=== PATIENT | female | born 1950 | race Caucasian/White ===

== ENCOUNTER 2022-03-25 03:23 | Inpatient (IN) ==
[2022-03-25] MEDS ORDERED: ONDANSETRON INJ 2 MG/ML 2 ML VIAL IV PRN (06:17)
[2022-03-25] MEDS ORDERED: ACETAMINOPHEN 325 MG TAB PO PRN (06:17)
[2022-03-25] MEDS ORDERED: Patient's ALLERGY Info needs ENTERED STA (06:20)
[2022-03-25] MEDS ORDERED: MoRPHine SULFATE 4 MG/ML 1 ML CARP\\VIAL IV PRN (06:36)
[2022-03-25] MEDS ORDERED: MoRPHine SULFATE 2 MG/ML CARP IV PRN (06:36)
[2022-03-25] MEDS ORDERED: POLYETHYLENE (MIRALAX) 17 GM PACK PO PRN (06:45)
--- NOTE | 2022-03-25 06:48 | History & Physical Report ---
Date of Service March 25, 2022 Assessment & Plan (1) Dislocation of left shoulder joint: Plan: 72yo female with history of ground level fall who initially presented to outside facility with anterior dislocation of the left shoulder and an age indeterminant fracture of the humeral head. Reduction attempted x 3 in ER, unsuccessful. Patient transferred her for Orthopedic evaluation. Presently pain is well controlled. Neurovascularly intact. -Admit to medical -Load imaging onto system -Orthopedics consultation appreciated -Place left arm in sling -Pain control with Morphine as needed -Colace and Miralax PRN (2) Parkinson disease: Plan: Chronic. -Continue Carbidopa-Levodopa -Continue Exelon patch F/E/N - Heplock. Labs ordered and pending. NPO for now Ppx - Low risk for DVT, SCDs Code - Full Dispo - Admit to medical Admission and Anticipated Discharge Date Admission Date: March 25, 2022 History of Present Illness Chief Complaint: left shoulder dislocation Primary Care Provider: NO PCP Kaleigh Farzana is a 72yo female with history of Parkinson's Disease presenting from [facility] with left anterior shoulder dislocation with ag e-indeterminant humeral fracture following a ground level fall. Patient is a poor historian and is unable to provide details of her the events preceding hospital arrival. Per discussion with ER staff at [facility], reduction was attempted x 3 and was unsuccessful. No Orthopedics on staff there. Patient requested transfer to [facility]. CT of the head was performed which was negative At [facility] she received Propofol 200mg and Versed 2mg IV for reduction Allergies Allergy/AdvReac Type Severity Reaction Status Date / Time No Known Drug Allergies Allergy Mild Verified 03/25/22 06:40 Home Medications Medication Instructions Recorded Confirmed Type carbidopa 25 mg-levodopa 100 mg 1 tab PO TID 03/25/22 03/25/22 History tablet rivastigmine 4.6 mg/24 hour 1 patch transdermal DAILY 03/25/22 03/25/22 History transdermal patch (Exelon Patch) Past Med/Surg History Medical History (Updated 03/25/22 @ 06:43 by Radha Chappell DO) Parkinson disease Surgical History (Updated 03/25/22 @ 06:43 by Radha Chappell DO) No significant past surgical history Family History (Updated 03/25/22 @ 06:41 by Radha Chappell DO) Other Family history non-contributory Social History (Updated 03/25/22 @ 06:41 by Radha Chappell DO) Smoking Status: Never smoker Hx Alcohol Use: No Hx Substance Use: No Preferred Language: Maori Communication Ability: Effective Manager Digital Required: No Beliefs That Will Affect Care: None Current Living Situation: Personal Care Facility Other Information That Helps Us Care for You: No Feels Safe at Home: Yes Safety Concerns: Feels Safe At This Time Review of Systems Review of Systems: All systems reviewed & are unremarkable except as noted in HPI & below Physical Exam Physical Exam: General: patient resting comfortably, NAD, non-toxic in appearance, oriented to self and hospital Skin: warm, dry, intact, no rashes or lesions HEENT: NC/AT, PERRL, EOMI, anicteric sclera, conjunctiva without injection, external ear normal to inspection and nontender, nares patent, moist mucus membranes, dentition intact, no oropharyngeal lesions, neck supple, trachea midline, no LAD, no thyromegaly, no JVD Heart: +S1/S2, regular, no m/r/g Lungs: equal air entry bilaterally, no rales/rhonchi/wheezes Abd: +BS, soft, NT/ND, no masses/organomegaly/ascites Ext: warm, 2+ pulses in UE/LE bilaterally, no clubbing/cyanosis or edema Neuro: nonfocal, speech intact, no facial droop, moving all extremities on command with equal strength 5/5 Results & Data Results & Data ([facility]) Vital Signs (Past 12 Hours) Vital Signs Temp Resp BP Pulse Ox O2 Del Method 03/25/22 06:11 36.7 C 18 121/76 97 Room Air PG Care Time/CCT Total # of Minutes Spent Total Time Spent with Patient: Total time spent is greater than 50% in coordination of care (as documented) at patient's floor/unit and/or counseling patient: Coding Level of Care Code 60630 INT INP/OBS CARE 2/55MIN Diagnoses Dislocation of left shoulder joint S43.005A Parkinson disease G20
[2022-03-25 07:00] LABS: Basophils # (auto) 0.03 K/uL (0-0.2); Basophils % (auto) 0.3 %; Hematocrit (blood only) 39.2 % (34.1-44.9); Immature Granulocytes # (auto) 0.04 K/uL (0.00-0.02); Immature Granulocytes % (auto) 0.4 %; Lymphocytes # (auto) 1.11 K/uL (1.2-3.4); Lymphocytes % (auto) 9.9 %; Mean Corpuscular Hemoglobin 30.4 pg (25.0-34.0); Mean Corpuscular Hgb Conc 33.2 g/dL (32.0-36.0); Mean Corpuscular Volume 91.8 fL (80.0-100.0); Mean Platelet Volume 9.9 fL (9.4-12.3); Monocytes # (auto) 0.74 K/uL (0.24-0.82); Monocytes % (auto) 6.6 %; Neutrophils % (auto) 82.8 %; Platelet Count 273 K/uL (130-400); RDW Coefficient of Variation 13.5 % (11.5-14.5); RDW Standard Deviation 45.9 fL (36.4-46.3); Red Blood Count 4.27 M/uL (3.93-5.22); White Blood Count 11.22 K/ul (4.8-10.8)
[2022-03-25 07:25] LABS: Albumin Level 3.8 gm/dl (3.4-5.0); BUN Creatinine Ratio 30.1 (10-20); Bilirubin Direct 0.1 mg/dl (0-0.2); Bilirubin,Total 0.6 mg/dl (0.2-1.0); Calcium 8.7 mg/dl (8.5-10.1); Creatinine Clr Calc Pharmacy 51.9 ml/min; Est GFR (African American) 71.2 ml/min; Est GFR (Non-African American) 61.4 ml/min; Potassium 3.8 mmol/L (3.5-5.1); Total Protein 7.1 gm/dl (6.0-8.3)
[2022-03-25 07:35] LABS: Prothrombin Time 10.9 Seconds (9.0-12.0)
[2022-03-25] MEDS: EXELON~ORDER AWAITING ACTION SCH ×3 (08:51→23:23)
[2022-03-25] MEDS: CARBIDOPA/LEVODOPA 25/100MG TAB PO SCH ×3 (08:51→21:02)
--- NOTE | 2022-03-25 09:51 | XRay Report ---
LEFT SHOULDER 2 VIEWS CLINICAL HISTORY: Left shoulder dislocation. FINDINGS: 2 views of the left shoulder are compared to study performed earlier the same day 03/25/2022 . The skeletal structures are osteopenic. There is a comminuted fracture of the left humeral head wit h displaced fragments and anterior shoulder dislocation. Overlying soft tissue edema is noted. No add itional fracture is seen. Productive degenerative change is noted at the glenohumeral articulation. T he visualized left lung parenchyma appears clear. IMPRESSION: Left humeral head fracture and anterior shoulder dislocation. This is similar to previous . Electronically signed by: Ulises Mcintosh M.D. 03/25/2022 9:50 AM
--- NOTE | 2022-03-25 10:23 | Communication Note ---
Date of Service: March 25, 2022 Full consult dictated. Has fracture dislocation of her shoulder. Surgical treatment would entail reverse hemiarthroplasty if surgical treatment were p erformed. We will allow her to eat today. I will obtain a CAT scan to further evaluate and characterize the fracture and will discuss possibly of surgical treatment with our shoulder colleagues.
--- NOTE | 2022-03-25 10:43 | History and Physical Report ---
CHIEF COMPLAINT: Special attention to left shoulder fracture dislocation. HISTORY OF PRESENT ILLNESS: A 72-year-old female with a history of Parkinson's disease and dementia, who sustained a fall, ground level. She presents after attempted closed reduction x3 in the [facility] with an unsuccessful reduction. She is referred here due to lack of orthopedi c coverage at [facility]. PAST MEDICAL HISTORY: Chronic Parkinson's disease. MEDICATIONS: 1. Carbidopa/levodopa. 2. Rivastigmine. PHYSICAL EXAMINATION: The patient is alert to person and to hospital, but does exhibit baseline conf usion. Left shoulder exam shows tenderness with motion of the shoulder. She has moderate swelling i n the shoulder. No open injuries. She can flex and extend the digits in hand, the exam is limited. Neurovascular exam is limited secondary to discomfort. Her hand is warm and well perfused. RADIOGRAPHS: I reviewed multiple radiographs, which were available on PACS, but not to Printi from [facility]. Shoulder radiograph show a fracture dislocation of the humeral head with anterior disloca tion and fracture of the humeral head. Postop attempted post-reduction radiographs show no significa nt change. I reviewed radiographs today of the shoulder, which do show persistent fracture dislocati on of the shoulder with anterior dislocation. ASSESSMENT: A 72-year-old female with: 1. Left proximal humerus fracture dislocation. 2. History of Parkinson's disease. PLAN: I discussed findings with her. At this point in time, I feel this is unlikely would be satisf actorily reduced by closed means given the fracture. Consideration will be for reverse arthroplasty if she was a reasonable surgical candidate. I will obtain a CAT scan to evaluate configuration of fr acture. I will discuss further with our shoulder colleagues about possible surgical treatment. We w ill allow her to eat for today and will continue to follow. Job ID: [id number]
--- NOTE | 2022-03-25 11:40 | History & Physical Bridge Note ---
Date of Service March 25, 2022 History & Physical Bridge Note I have examined the patient, reviewed the History & Physical and in the interval since the performance of the History & Physical I have noted the following changes of clinical significance: Pt seen and examined. Has pain in left shoulder with movement or touch. She denies pain anywhere else, denies CP, SOB. Vitals reviewed NAD< AAOx2 RRR no mgr CTAB no wcr ABd +BS soft NT ND Ext -no edema in legs, LUE in sling, with ecchymosis anteriorly and edema , ++TTP anterior left shoulder, NVI distally; left knee with superficial scabbed over abrasion and faint yellow ecchymosis Labs and xray reviewed 72 yo female with h/o intellectual disability, PD, GERD, here with fall and left humerus fracture with dislocation Ortho eval appreciated. CT shoulder ordered Likely needs total arthroplasty as per Ortho WIll call POA with update Can eat today
--- NOTE | 2022-03-25 15:17 | CT Scan Report ---
CT SCAN OF THE LEFT SHOULDER WITHOUT IV CONTRAST CLINICAL HISTORY: Fracture/dislocation. COMPARISON STUDY: Left shoulder radiographs dated 03/25/2022. TECHNIQUE: CT scan of the left shoulder is performed from the lower neck to the humeral shaft. Images are reviewed in the axial, sagittal, and coronal planes. IV contrast was not administered for this e xamination. 3-D reformats are created and assessed. A dose lowering technique was utilized adhering t o the principles of ALARA. CT DOSE: 667.53 mGy.cm FINDINGS: The skeletal structures are osteopenic. There is an impacted and comminuted fracture of the left humeral head and neck with large displaced fragments. There is anterior shoulder dislocation, w ith associated hemarthrosis. Soft tissue edema and hemorrhage overlie the fracture site. No large sof t tissue hematoma is seen. Soft tissue edema is present within the left anterior chest wall and visua lized left upper extremity. No additional fracture is identified. The scapula is intact. The acromioc lavicular joint is maintained noting mild degenerative change. The visualized left lung parenchyma ap pears clear. No left axillary adenopathy is seen. IMPRESSION: 1. Impacted and comminuted fracture of the left humeral head and neck as above with displaced fragmen ts. 2. Anterior shoulder dislocation. 3. Hemarthrosis. 4. Soft tissue edema and hemorrhage are present around the fracture site. No large/organized hematoma is seen. ACT 112: Negative or not required by law. Dictated: 03/25/2022 11:39 AM Transcribed: 03/25/2022 11:49 AM Tiff [id number] [email or web address] Electronically signed by: Ulises Mcintosh M.D. 03/25/2022 3:15 PM
[2022-03-26] MEDS: EXELON~ORDER AWAITING ACTION SCH ×3 (09:06→23:13)
[2022-03-26] MEDS: CARBIDOPA/LEVODOPA 25/100MG TAB PO SCH ×3 (09:08→21:53)
[2022-03-26 09:55] LABS: Appearance Urine Turbid (Clear); Bacteria Urine Automated 4+ (Negative); Bilirubin Urine Negative (Negative); Blood Urine Negative (Negative); Color Urine Dark Yellow; Epithelial Cell Urine Auto >30 /lpf (0-5); Glucose Urine UA Negative (Negative); Ketones Urine 1+ (Negative); Leukocyte Esterase Urine 1+ (Negative); Nitrite Urine Positive (Negative); Protein Urine Trace (Negative); RBC Urine Automated >30 /hpf (0-4); Specific Gravity Urine 1.032 (1.000-1.030); Urobilinogen Urine Negative (Negative); pH Urine 5.5 (4.5-7.5)
[2022-03-26] MEDS: cefTRIAXone SODIUM 2,000 MG in DEXTROSE 5% 50 ML IV SCH (12:59)
--- NOTE | 2022-03-26 15:16 | Hospitalist Progress Note ---
Date of Service March 26, 2022 Assessment & Plan (1) Dislocation of left shoulder joint: Plan: 72yo female with history of ground level fall who initially presented to outside facility with anterior dislocation of the left shoulder and an age indeterminant fracture of the humeral head. Reduction attempted x 3 in ER, unsuccessful. Patient transferred her for Orthopedic evaluation. Seen by orthopedics here, CT left shoulder ordered as well as x-rays Plan for reverse TSA on 03/[address] Jamison Pain is controlled as long as shoulder is not touched or moved. -Continues to medical/surgical unit for orthopedic surgery and then postoperative recovery -Pain control for now with IV morphine as needed, Tylenol as needed -Appreciate orthopedics consultation -Bowel regimen with MiraLAX and docusate as needed -DVT prophylaxis to be determined by orthopedics along with SCDs -Follow CBC, BMP postoperatively tomorrow (2) Parkinson disease: Plan: Chronic. -Continue Carbidopa-Levodopa -Continue Exelon patch-this will need to be brought in from her personal longterm (3) UTI (urinary tract infection): Plan: Having urinary urgency on 03/26 Urinalysis consistent with UTI -Start ceftriaxone -Follow urine culture (4) Intellectual delay: Plan: Supportive care Lives in a personal longterm Previously lived for 3 years with her POA Dionne who is listed in the chart. Unfortunately, Mariah moved to [place] but remains the patient's POA and should be contacted for all decisions as the patient has lifelong intellectual delay. (5) Mild cognitive impairment: Plan: Noted, more recent diagnosis in the last few years as per her POA Supportive care Not on medications for dementia Is at her baseline as per POA currently (6) GERD (gastroesophageal reflux disease): Plan: Not on medications for this currently Plan DVT prophylaxis-SCDs and further prophylaxis to be determined by orthopedics after surgery Disposition-after surgery will need PT/OT evaluations to see if we will need SNF versus return to personal-longterm with 01/10 care I discussed her care with the orthopedic surgery PA on 03/26. I discussed her care with her POA on the phone on 03/25 Admission and Anticipated Discharge Date Admission Date: March 25, 2022 Subjective Patient has pain in the left shoulder, otherwise feels fine. Is awaiting surgery today. Denies shortness of breath. Reports she feels generally weak all over and knows not to get out of bed without calling for help. She was complaining of urinary urgency this morning but was not able to void. PVR was 64 mL. Urinalysis checked and consistent with UTI Review of Systems Review of Systems: All systems reviewed & are unremarkable except as noted in HPI & below Physical Exam Constitutional: WD/WN, vitals as above Eyes: + anicteric sclerae Neck: trachea midline, no thyromegaly Respiratory: normal respiratory effort, lungs clear to auscultation Cardiovascular: RRR, no murmur, no edema Chest (Breasts): Chest: normal inspection of chest Gastrointestinal (Abdomen): normal bowel sounds, soft, nontender, no hepatosplenomegaly Musculoskeletal: Extremities: + extremities abnormal to inspection (LUE in sling, left anterior shoulder with edema, ecchymosis, positive TTP), no cyanosis and no clubbing Knee with abrasion and faint ecchymosis Skin: no rashes, warm and dry Neurologic: moves all extremities and awake; no focal motor deficits Psychiatric: Orientation: alert, oriented to person and cooperative; + not oriented to place and + not oriented to time Results & Data Results & Data ([facility]) Vital Signs (Past 12 Hours) Vital Signs Temp Pulse Resp BP Pulse Ox O2 Del Method 03/26/22 07:49 36.4 C L 100 H 18 146/80 H 94 Room Air Laboratory Results 03/26/22 03/26/22 Range/Units Unknown 08:08 POC Glucose 118 H (70-99) mg/dl Urine Color Dark Yellow Urine Appearance Turbid A (Clear) Urine pH 5.5 (4.5-7.5) Ur Specific [place] 1.032 H (1.000-1.030) Urine Protein Trace H (Negative) Urine Glucose (UA) Negative (Negative) Urine Ketones 1+ H (Negative) Urine Blood Negative (Negative) Urine Nitrite Positive A (Negative) Urine Bilirubin Negative (Negative) Urine Urobilinogen Negative (Negative) Ur Leukocyte Esterase 1+ H (Negative) Urine WBC (Auto) 10-30 H (0-5) /hpf Urine RBC (Auto) >30 H (0-4) /hpf U Hyaline Cast (Auto) 5-10 H (0-5) /lpf U Epithel Cells (Auto) >30 H (0-5) /lpf Urine Bacteria (Auto) 4+ H (Negative) Urine Crystals Not Reportable Other Crystals Talc (None Prsent) PG Care Time/CCT Total # of Minutes Spent Total Time Spent with Patient: Total time spent is greater than 50% in coordination of care (as documented) at patient's floor/unit and/or counseling patient: Coding Level of Care Code 75302 SUB INP/OBS CARE 2/35MIN Diagnoses Dislocation of left shoulder joint S43.005A Parkinson disease G20 UTI (urinary tract infection) N39.0 Intellectual delay F81.9 Mild cognitive impairment G31.84 GERD (gastroesophageal reflux disease) K21.9
--- NOTE | 2022-03-26 15:36 | History & Physical Bridge Note ---
Date of Service March 26, 2022 History & Physical Bridge Note I have examined the patient, reviewed the History & Physical and in the interval since the performance of the History & Physical I have noted the following changes of clinical significance: no changes noted
--- NOTE | 2022-03-26 15:58 | Anesthesiology Consultation ---
Date of Service March 26, 2022 Assessment & Plan (1) Encounter for pre-operative examination: Chart Review Chart Review: Acceptable Risk for Surgery and Patient NOT seen in Pre Admission Testing Consults Requested none History Surgery Operation Date: 03/26/22 07:50 Proposed Procedures p Left Total Shoulder Arthroplasty Reverse - Lv Jamison MD Height/Weight Height: 5 ft Weight: 82 kg Allergies Allergy/AdvReac Type Severity Reaction Status Date / Time No Known Drug Allergies Allergy Mild Verified 03/25/22 06:40 Medications Home Medications Medication Instructions Recorded Confirmed Last Taken carbidopa 25 mg-levodopa 100 mg 1 tab PO TID 03/25/22 03/25/22 Unknown tablet rivastigmine 4.6 mg/24 hour 1 patch transdermal DAILY 03/25/22 03/25/22 Unknown transdermal patch (Exelon Patch) Active Medications Generic Name Dose Route Start Last Admin Trade Name Freq PRN Reason Stop Dose Admin Acetaminophen 650 mg 03/25/22 06:17 03/26/22 09:07 Acetaminophen 325 Mg Tab PO 04/24/22 06:16 650 mg Q4H PRN Administration pain/fever Carbidopa/Levodopa 1 tab 03/25/22 09:00 03/26/22 14:09 Carbidopa/Levodopa 25/100mg Tab PO 04/24/22 08:59 1 tab TID PITA Administration Ceftriaxone Sodium 2,000 mg/ 70 mls @ 100 mls/hr 03/26/22 11:00 03/26/22 13:57 Dextrose IV 03/31/22 10:59 Infused Q24H PITA Infusion Protocol Miscellaneous 1 each 03/25/22 08:00 03/26/22 15:11 Exelon~Order Awaiting Action N/A 04/24/22 07:59 Not Given QS PITA NPO Date Last Intake of Fluids: 03/26/22 Time Last Intake of Fluids: 08:00 Date Last Intake of Solids: 03/25/22 Time Last Intake of Solids: 18:00 Past Medical History Medical History GERD (gastroesophageal reflux disease) Intellectual delay Mild cognitive impairment Parkinson disease Past Family History Family History Other Family history non-contributory Past Surgical History Surgical History No significant past surgical history Social History Smoking Status: Never smoker Hx Alcohol Use: No Hx Substance Use: No Physical Exam Vital Signs Last Vital Signs Temp 98.6 F 03/26/22 15:24 Pulse 93 H 03/26/22 15:24 Resp 18 03/26/22 15:24 BP 154/71 H 03/26/22 15:24 Pulse Ox 96 03/26/22 15:24 O2 Del Method 03/26/22 15:24 Testing Laboratory Results 03/25/22 06:36 03/25/22 06:36 PT 10.9 Seconds (9.0-12.0) 03/25/22 06:36 INR 1.0 (0.9-1.1) 03/25/22 06:36 Urine Color Dark Yellow 03/26/22 Unknown Urine Appearance Turbid (Clear) A 03/26/22 Unknown Urine pH 5.5 (4.5-7.5) 03/26/22 Unknown Ur Specific [place] 1.032 (1.000-1.030) H 03/26/22 Unknown Urine Protein Trace (Negative) H 03/26/22 Unknown Urine Glucose (UA) Negative (Negative) 03/26/22 Unknown Urine Ketones 1+ (Negative) H 03/26/22 Unknown Urine Nitrite Positive (Negative) A 03/26/22 Unknown Ur Leukocyte Esterase 1+ (Negative) H 03/26/22 Unknown Urine WBC (Auto) 10-30 /hpf (0-5) H 03/26/22 Unknown Urine RBC (Auto) >30 /hpf (0-4) H 03/26/22 Unknown U Hyaline Cast (Auto) 5-10 /lpf (0-5) H 03/26/22 Unknown U Epithel Cells (Auto) >30 /lpf (0-5) H 03/26/22 Unknown Urine Bacteria (Auto) 4+ (Negative) H 03/26/22 Unknown 03/26/22 08:08 POC Glucose 118 H Electrocardiogram Date: 03/26/22 Findings: + NSR @ (85)
[2022-03-26] MEDS ORDERED: ePHEDrine sulfate 50 MG/ML AMP IV PRN (16:01)
[2022-03-26] MEDS ORDERED: fentaNYL citrate 100 MCG/2 ML VIAL IV PRN (16:01)
[2022-03-26] MEDS ORDERED: ONDANSETRON INJ 2 MG/ML 2 ML VIAL IV PRN (16:01)
[2022-03-26] MEDS ORDERED: ATROPINE SULFATE 0.1 MG/ML 10ML SYR IV PRN (16:01)
[2022-03-26] MEDS ORDERED: BUPIVACAINE 0.5 % 5 MG/1 ML MPF 30ML VIAL ONE (16:07)
[2022-03-26] MEDS ORDERED: fentaNYL citrate 100 MCG/2 ML VIAL ONE (17:02)
[2022-03-26] MEDS ORDERED: DEXAMETHASONE SOD INJ 4 MG/ML VIAL ONE (18:13)
[2022-03-26] MEDS ORDERED: PROPOFOL IV EMULSION 10 MG/ML 20 ML VIAL IV ONE (18:13)
[2022-03-26] MEDS ORDERED: ROCURONIUM BROMIDE 10 MG/ML 5 ML VIAL IV ONE (18:13)
[2022-03-26] MEDS ORDERED: LIDOCAINE 2% MPF LOCAL 5 ML VIAL INFIL ONE (18:13)
[2022-03-26] MEDS ORDERED: PHENYLEPHRINE HCL 10 MG/ML VIAL ONE (18:28)
[2022-03-26] MEDS ORDERED: TRANEXAMIC ACID / 0.7% NACL 1000MG/100ML BAG IV ONE (18:41)
[2022-03-26] MEDS ORDERED: ONDANSETRON INJ 2 MG/ML 2 ML VIAL ONE (18:42)
[2022-03-26] MEDS ORDERED: GLYCOPYRROLATE 0.2 MG/ML VIAL ONE (19:07)
[2022-03-26] MEDS ORDERED: NEOSTIGMINE METHYLSULFATE 1 MG/ML 10ML VIAL ONE (19:07)
--- NOTE | 2022-03-26 20:44 | Operative Report ---
Post Operative Report Pre & Post Diagnosis Operation Date: 03/26/22 07:50 Pre-Op Diagnosis: Left displaced head split proximal humerus fracture with anterior dislocation Post-Op Diagnosis: Left displaced head split proximal humerus fracture with anterior dislocation an d traumatic rupture biceps tendon. I identified the patient and participated in the time-out.: Yes Procedure Operation Date: 03/26/22 07:50 Actual Procedures p Left fracture reversed Total Shoulder Arthroplasty, Cemented(Left), repair and bone grafting of tuberosities, biceps tenodesis.- Lv Jamison MD Surgeon Lv Jamison MD Pediatric Physiatrist Cristóbal JAY Estimated Blood Loss 80 Findings Consistent with Post-Op Diagnosis Specimens Bone fragments Drains 2 Hemovac Anesthesia Type General Regional Complications none Disposition Disposition: Recovery Room Indications 72-year-old female traumatic fracture dislocation of her left shoulder with irreducible anterior dislocation with CT scan demonstrating a head splitting fracture with half of the head being dislocated anterior to the glenoid with remainder of the fracture being hinged on the anterior glenoid rim. Description of Procedure Patient was taken to the operating room anesthetized under regional block and general anesthetic. Patient was placed in the beachchair position. A towel roll was placed under the medial border of the left scapula. The head was placed on a foam headrest. Protective eyewear was placed. SCDs were placed. All extremities were well-padded. Shoulder exam demonstrated an obese and additionally swollen shoulder from the fracture dislocation. Skin was intact.. The shoulder was sterilely prepped and draped in usual sterile fashion with ChloraPrep. An anterior deltopectoral approach was performed. The skin was incised sharply in longitudinal fashion. Subcutaneous flaps were elevated. The deltopectoral interval was identified. The cephalic vein was intact and normal and dissected out retracted lateral with the deltoid. The deltopectoral interval was developed. The conjoined tendon was identified and retracted medially. The clavipectoral fascia was divided at the lateral margin the conjoined tendon. The upper 1 cm of the pectoralis was released for inferior exposure. The biceps tendon findings demonstrated that the biceps was transected at the level of the fracture and was retracted just under the pectoralis tendon. I was able to mobilize this proximally and then the biceps tendon was sutured to the pectoralis tendon using [id number] #2 FiberWire sutures tenodesed in the biceps to the pectoralis tendon.. Proximal biceps was dissected out into the joint splaying what remained of the intact rotator cuff. The fracture pattern demonstrated the anterior dislocated humeral head fragment still was attached to the lesser tuberosity. Greater tuberosity fracture was fragmented partially detached from the posterior humeral head fragment which was still in the joint. Fracture occurred at the level of the neck of the humerus. Vicryl sutures were placed into the subscapularis tendon and the supraspinatus and infraspinatus tendons to control the tuberosity fractures. The humeral head fragments were osteotomized from the tuberosity fragments and removed. Debris was irrigated out of the glenohumeral joint. The glenoid findings demonstrated a petite glenoid but intact articular cartilage and labrum. The Tornier reverse total shoulder replacement was utilized with the Tornier fracture stem. Glenoid exposure performed removing the labrum and proximal piece of biceps tendon and performing anterior-inferior and posterior capsule release and triceps tendon release. Dissection was performed on bone to protect the axillary nerve. Retractors were placed to expose the glenoid. The cartilage on the glenoid was removed with a curette. The glenoid was sized for a 25 millimeter baseplate. The guide for the aequalis baseplate was positioned and central drill hole was made. The reamer was used. The bone quality was osteoporotic. The central drill hole was widened for the post. The glenoid was irrigated with pulsatile lavage saline solution. The 25 millimeter aequalis hydroxyapatite-coated baseplate was impacted into position with excellent fit. This was transfixed with superior and inferior locking screws and anterior posterior compression screws. The 36 x 25 glenoid sphere was impacted onto the baseplate and the security screw tightened. This was checked for stability and was intact and stable. Attention taken to the humerus. Humeral canal was reamed and size 9 millimeter stem was chosen. Height of the implant when impacted was documented and rotation was placed with the rotational vida in line with the forearm. Trial reduction demonstrated that a size 9 trial polyethylene insert gave stability and no shuck. The trial was removed and the canal was irrigated with pulsatile lavage saline solution. Four #5 FiberWire sutures were first passed around the posterior greater tuberosity fragments. Two #5 FiberWire sutures were placed through drill holes into the shaft and docked for later tying. The cement restrictor was placed at the appropriate depth in the canal of the humerus. Bone graft was harvested from the humeral head and the bone graft inserted into the hole in the humeral implant. The 9 mm x 130 mm aequalis fracture stem humeral implant was cemented into position with Palacos G cement. After the cement cured the 9 mm reversed polyethylene insert was impacted into the humeral implant. 4 tails of the suture were passed around the implant prior to reducing it to the glenoid sphere. The tuberosities posteriorly were then sutured to the stem after placing bone graft between the hydroxyapatite portion of the stem the shaft and the tuberosity fragments. The arm was rotated and the posterior tuberosities were secured with rotation. Sutures were then passed around the lesser tuberosity fragments through the subscap tendon and then bone graft was placed underlying these fragments and the humeral implant and the shaft area. The other two #5 FiberWire sutures were tied around the lesser tuberosity fragment suturing that to the shaft and the lesser to the greater tuberosity fragments together. The Vicryl sutures were tied to each other for added security. The shaft sutures were placed in [id number] fashion around the tuberosity fracture fragments anteriorly and posteriorly to secure the tuberosity fracture fragments to the shaft. The repair was stable with passive range of motion and range of motion was on 120 degrees of flexion 90 degrees abduction and 45 degrees internal and external rotation. The pectoralis tendon was repaired with [id number] #2 FiberWire sutures. The sutures were passed through the biceps tendon to reinforce the biceps tenodesis. After further saline irrigation 2 Hemovac drains were brought out laterally. The deltopectoral interval was repaired with [id number] #1 Vicryl sutures. The subcutaneous tissue closed into 2-0 Vicryl sutures. Skin was closed with jessica. Sterile dressings were applied and a shoulder immobilizer. Cristóbal JAY was my assistant bookkeeper and assisted throughout the procedure including prepping draping arm positioning soft tissue retraction suture management wound closure and postop care the patient. I attest to the content of the Intraoperative Record and any orders documented therein. Any exceptions are noted below.
--- NOTE | 2022-03-26 21:08 | XRay Report ---
LEFT SHOULDER 2 VIEWS CLINICAL HISTORY: Postoperative examination. FINDINGS: 2 portable views of the left shoulder are obtained. The skeletal structures are osteopenic. A left shoulder arthroplasty is in near anatomic alignment. No acute fracture is seen. Productive de generative change is noted at the acromioclavicular joint. Skin clips, a surgical drain, soft tissue gas, and edema overlying the left shoulder are expected postoperative findings. The visualized left l lidia parenchyma appears clear. IMPRESSION: Expected postoperative findings status post left shoulder arthroplasty. No acute fracture is seen. Electronically signed by: Ulises Mcintosh M.D. 03/26/2022 9:07 PM
--- NOTE | 2022-03-26 21:19 | Anesthesiology Progress Note ---
Date of Service March 26, 2022 Anesthesia Post Procedure Vital Signs Vital Signs: Temp Pulse Pulse Resp BP Pulse Ox O2 Del Method 03/26/22 21:10 84 19 104/89 100 Nasal Cannula 03/26/22 21:00 88 21 109/78 94 Oxymask 03/26/22 20:52 97.0 F L 82 15 139/90 99 Oxymask 03/26/22 15:24 98.6 F 93 H 18 154/71 H 96 Room Air 03/26/22 07:49 97.5 F L 100 H 18 146/80 H 94 Room Air 03/25/22 23:03 99.1 F 87 18 110/71 94 Room Air O2 Flow Rate 03/26/22 21:10 2 03/26/22 21:00 4 03/26/22 20:52 10 03/26/22 15:24 03/26/22 07:49 03/25/22 23:03 Transfer of Care Handoff Completed per policy Notes Mental Status: alert / awake / arousable and participated in evaluation Patient Amnestic to Procedure: Yes Nausea / Vomiting: adequately controlled Pain: adequately controlled Airway Patency, RR, SpO2: stable & adequate BP & HR: stable & adequate Hydration State: stable & adequate Anesthetic Complications: no major complications apparent and Pt Satisfied with anesthetic care
[2022-03-26] MEDS ORDERED: oxyCODONE HCL IR 5 MG TAB (IMMEDIATE RELEASE) PO PRN (21:32)
[2022-03-26] MEDS ORDERED: SODIUM CHLORIDE 0.9% 1000ML 1,000 ML IV SCH (21:32)
[2022-03-26] MEDS ORDERED: bisacodyL 10 MG SUPP PR PRN (21:32)
[2022-03-26] MEDS ORDERED: diphenhydrAMINE 50 MG/ML VIAL IV PRN (21:32)
[2022-03-26] MEDS ORDERED: MAGNESIUM HYDROXIDE SUSP 30 ML UDC PO PRN (21:32)
[2022-03-26] MEDS ORDERED: NALOXONE HCL 0.4 MG/1 ML VIAL/CARP IV PRN (21:32)
[2022-03-26] MEDS: ACETAMINOPHEN 500 MG TAB PO SCH (21:53)
[2022-03-27] MEDS: ACETAMINOPHEN 500 MG TAB PO SCH ×2 (05:06→14:38)
--- NOTE | 2022-03-27 06:06 | Electrocardiogram Report ---
Test Reason : Blood Pressure : / mmHG Vent. Rate : 085 BPM Atrial Rate : 085 BPM P-R Int : 130 ms QRS Dur : 070 ms QT Int : 368 ms P-R-T Axes : 070 045 027 degrees QTc Int : 437 ms Normal sinus rhythm Nonspecific ST abnormality Abnormal ECG When compared with ECG of 09-MAR-2009 11:04, Premature atrial complexes are no longer Present T wave amplitude has decreased in Anterior leads Confirmed by Rob Erickson ([id number]) on 03/27/2022 6:06:08 AM Referred By: REFERRED SELF Confirmed By:Rob Erickson
[2022-03-27] MEDS: EXELON~ORDER AWAITING ACTION SCH ×2 (07:16→15:07)
[2022-03-27 07:21] LABS: Basophils # (auto) 0.02 K/uL (0-0.2); Basophils % (auto) 0.2 %; Hematocrit (blood only) 32.3 % (34.1-44.9); Hemoglobin 10.5 g/dl (12.0-16.0); Immature Granulocytes # (auto) 0.05 K/uL (0.00-0.02); Immature Granulocytes % (auto) 0.5 %; Lymphocytes # (auto) 1.07 K/uL (1.2-3.4); Lymphocytes % (auto) 9.7 %; Mean Corpuscular Hemoglobin 30.5 pg (25.0-34.0); Mean Corpuscular Hgb Conc 32.5 g/dL (32.0-36.0); Mean Corpuscular Volume 93.9 fL (80.0-100.0); Mean Platelet Volume 9.6 fL (9.4-12.3); Monocytes # (auto) 0.69 K/uL (0.24-0.82); Monocytes % (auto) 6.3 %; Neutrophils # (auto) 9.17 K/uL (1.4-6.5); Neutrophils % (auto) 83.3 %; Platelet Count 213 K/uL (130-400); RDW Coefficient of Variation 13.4 % (11.5-14.5); RDW Standard Deviation 46.1 fL (36.4-46.3); Red Blood Count 3.44 M/uL (3.93-5.22)
[2022-03-27 07:46] LABS: BUN Creatinine Ratio 30.5 (10-20); Calcium 8.1 mg/dl (8.5-10.1); Creatinine Clr Calc Pharmacy 58.8 ml/min; Est GFR (African American) 82.9 ml/min; Est GFR (Non-African American) 71.5 ml/min; Potassium 3.8 mmol/L (3.5-5.1)
[2022-03-27] MEDS: MULTIVITAMIN TAB PO SCH (09:18)
[2022-03-27] MEDS: CARBIDOPA/LEVODOPA 25/100MG TAB PO SCH ×3 (09:18→22:20)
--- NOTE | 2022-03-27 09:29 | Orthopedic Progress Note ---
Date of Service March 27, 2022 Assessment & Plan (1) History of reverse total replacement of left shoulder joint: Plan: POD #1 s/p Left fracture reversed Total Shoulder Arthroplasty, Cemented(Left), repair and bone grafting of tuberosities, biceps tenodesis pt/ot sling, ice dvt proph with fabi/scd/asa Admission and Anticipated Discharge Date Admission Date: March 25, 2022 Subjective POD #1 s/p Left reverse Total Shoulder Arthroplasty, Cemented(Left), repair and bone grafting of tuberosities, biceps tenodesis Review of Systems Constitutional: no fever and no chills Respiratory: no cough and no dyspnea Cardiovascular: no chest pain, no dyspnea and no orthopnea Gastrointestinal: no abdominal pain, no nausea and no vomiting Physical Exam Physical Exam: Vital Signs Temp 36.7 C 03/27/22 07:58 Pulse 85 03/27/22 07:58 Resp 19 03/27/22 07:58 BP 116/61 03/27/22 07:58 Pulse Ox 93 03/27/22 07:58 O2 Del Method 03/27/22 07:58 O2 Flow Rate 2 03/26/22 21:20 Intake & Output 03/26/22 03/27/22 03/27/22 18:59 06:59 18:59 Intake Total 70 / 2520 2450 / 2520 Output Total 100 / 520 420 / 520 Balance -1999 Weight 82 kg Intake: IV 70 / 1070 1000 / 1070 Sodium Chlorid e 0.9% 1000ML 1, 1000 / 1000 000 ml @ 100 m ls/hr IV .Q10H PITA Rx#:[id number] cefTRIAXone SO DIUM 2,000 mg In 70 / 70 Dextrose 5% 50 ml @ 100 mls/hr IV Q24H PITA Rx #:[id number] IV Perioperative 1200 / 1200 Oral 250 / 250 Output: Urine 100 / 100 Estimated Blood Loss 80 / 80 Urine Amount (Ca theter) 300 / 300 Daily/Indwelli ng 300 / 300 Drain Output 40 / 40 Left Shoulder Hemovac 40 / 40 Other: # Unmeasured Voi ds 1 Musculoskeletal: left upper extremity: arm resting in sling, dressing clean and dry. rad +2, rad/med/uln nerves intact Results & Data ([facility]) Vital Signs (Past 12 Hours) Vital Signs Temp Pulse Pulse Resp BP Pulse Ox O2 Del Method 03/27/22 07:58 36.7 C 85 19 116/61 93 Room Air 03/27/22 04:19 36.8 C 91 H 16 126/65 93 Room Air 03/27/22 00:30 36.8 C 88 16 108/61 96 Room Air 03/26/22 23:14 36.8 C 100 H 16 100/67 92 Room Air 03/26/22 22:30 36.6 C 90 18 92/62 L 96 Room Air 03/26/22 21:59 36.7 C 87 16 114/78 93 Room Air 03/26/22 21:30 36.4 C L 89 16 127/72 93 Room Air Diagnostic Findings Laboratory Results WBC 11.00 K/ul (4.8-10.8) H 03/27/22 06:54 RBC 3.44 M/uL (3.93-5.22) L 03/27/22 06:54 Hgb 10.5 g/dl (12.0-16.0) L 03/27/22 06:54 Hct 32.3 % (34.1-44.9) L 03/27/22 06:54 MCV 93.9 fL (80.0-100.0) 03/27/22 06:54 MCH 30.5 pg (25.0-34.0) 03/27/22 06:54 MCHC 32.5 g/dL (32.0-36.0) 03/27/22 06:54 RDW Std Deviation 46.1 fL (36.4-46.3) 03/27/22 06:54 RDW Coeff of Sasha 13.4 % (11.5-14.5) 03/27/22 06:54 Plt Count 213 K/uL (130-400) 03/27/22 06:54 MPV 9.6 fL (9.4-12.3) 03/27/22 06:54 Immature Gran % (Auto) 0.5 % 03/27/22 06:54 Neut % (Auto) 83.3 % 03/27/22 06:54 Lymph % (Auto) 9.7 % 03/27/22 06:54 [place] % (Auto) 6.3 % 03/27/22 06:54 Eos % (Auto) 0.0 % 03/27/22 06:54 Baso % (Auto) 0.2 % 03/27/22 06:54 Neut # (Auto) 9.17 K/uL (1.4-6.5) H 03/27/22 06:54 Lymph # (Auto) 1.07 K/uL (1.2-3.4) L 03/27/22 06:54 [place] # (Auto) 0.69 K/uL (0.24-0.82) 03/27/22 06:54 Eos # (Auto) 0.00 K/uL (0-0.50) 03/27/22 06:54 Baso # (Auto) 0.02 K/uL (0-0.2) 03/27/22 06:54 Immature Gran # (Auto) 0.05 K/uL (0.00-0.02) H 03/27/22 06:54 PT 10.9 Seconds (9.0-12.0) 03/25/22 06:36 INR 1.0 (0.9-1.1) 03/25/22 06:36 Sodium 141 mmol/L (136-145) 03/27/22 06:54 Potassium 3.8 mmol/L (3.5-5.1) 03/27/22 06:54 Chloride 109 mmol/L (98-107) H 03/27/22 06:54 Carbon Dioxide 28 mmol/L (21-32) 03/27/22 06:54 Anion Gap 4 (3-11) 03/27/22 06:54 BUN 25 mg/dl (6-23) H 03/27/22 06:54 Creatinine 0.82 mg/dl (0.6-1.2) 03/27/22 06:54 Est Cr Clr Drug Dosing 58.8 ml/min 03/27/22 06:54 Est GFR ( Amer) 82.9 ml/min 03/27/22 06:54 Est GFR (Non-Af Amer) 71.5 ml/min 03/27/22 06:54 BUN/Creatinine Ratio 30.5 (10-20) H 03/27/22 06:54 Glucose 98 mg/dl (70-99(Fasting)) 03/27/22 06:54 POC Glucose 118 mg/dl (70-99) H 03/26/22 08:08 Calcium 8.1 mg/dl (8.5-10.1) L 03/27/22 06:54 Magnesium 2.0 mg/dl (1.7-2.4) 03/25/22 06:36 Total Bilirubin 0.6 mg/dl (0.2-1.0) 03/25/22 06:36 Direct Bilirubin 0.1 mg/dl (0-0.2) 03/25/22 06:36 AST 15 U/L (13-39) 03/25/22 06:36 ALT 8 U/L (7-52) 03/25/22 06:36 Alkaline Phosphatase 104 U/L (34-104) 03/25/22 06:36 Total Protein 7.1 gm/dl (6.0-8.3) 03/25/22 06:36 Albumin 3.8 gm/dl (3.4-5.0) 03/25/22 06:36 Urine Color Dark Yellow 03/26/22 Unknown Urine Appearance Turbid (Clear) A 03/26/22 Unknown Urine pH 5.5 (4.5-7.5) 03/26/22 Unknown Ur Specific [place] 1.032 (1.000-1.030) H 03/26/22 Unknown Urine Protein Trace (Negative) H 03/26/22 Unknown Urine Glucose (UA) Negative (Negative) 03/26/22 Unknown Urine Ketones 1+ (Negative) H 03/26/22 Unknown Urine Blood Negative (Negative) 03/26/22 Unknown Urine Nitrite Positive (Negative) A 03/26/22 Unknown Urine Bilirubin Negative (Negative) 03/26/22 Unknown Urine Urobilinogen Negative (Negative) 03/26/22 Unknown Ur Leukocyte Esterase 1+ (Negative) H 03/26/22 Unknown Urine WBC (Auto) 10-30 /hpf (0-5) H 03/26/22 Unknown Urine RBC (Auto) >30 /hpf (0-4) H 03/26/22 Unknown U Hyaline Cast (Auto) 5-10 /lpf (0-5) H 03/26/22 Unknown U Epithel Cells (Auto) >30 /lpf (0-5) H 03/26/22 Unknown Urine Bacteria (Auto) 4+ (Negative) H 03/26/22 Unknown Urine Crystals Not Reportable 03/26/22 Unknown Other Crystals Talc (None Prsent) 03/26/22 Unknown Nasal Screen MRSA (PCR) Positive (Negative) A 03/25/22 07:03 SARS-CoV-2, RNA, NAAT NEGATIVE (NEGATIVE) 03/25/[address] 03/25/22 10:17 CT SCAN OF THE LEFT SHOULDER WITHOUT IV CONTRAST CLINICAL HISTORY: Fracture/dislocation. COMPARISON STUDY: Left shoulder radiographs dated 03/25/2022. TECHNIQUE: CT scan of the left shoulder is performed from the lower neck to the humeral shaft. Images are reviewed in the axial, sagittal, and coronal planes. IV contrast was not administered for this examination. 3-D reformats are created and assessed. A dose lowering technique was utilized adhering to the principles of ALARA. CT DOSE: 667.53 mGy.cm FINDINGS: The skeletal structures are osteopenic. There is an impacted and comminuted fracture of the left humeral head and neck with large displaced fragments. There is anterior shoulder dislocation, with associated hemarthrosis. Soft tissue edema and hemorrhage overlie the fracture site. No large soft tissue hematoma is seen. Soft tissue edema is present within the left anterior chest wall and visualized left upper extremity. No additional fracture is identified. The scapula is intact. The acromioclavicular joint is maintained noting mild degenerative change. The visualized left lung parenchyma appears clear. No left axillary adenopathy is seen. IMPRESSION: 1. Impacted and comminuted fracture of the left humeral head and neck as above with displaced fragments. 2. Anterior shoulder dislocation. 3. Hemarthrosis. 4. Soft tissue edema and hemorrhage are present around the fracture site. No large/organized hematoma is seen. ACT 112: Negative or not required by law. Dictated: 03/25/2022 11:39 AM Transcribed: 03/25/2022 11:49 AM Tiff [id number] [facility] Electronically signed by: Ulises Mcintosh M.D. 03/25/2022 3:15 PM Shoulder X-Ray 03/26/22 18:23 LEFT SHOULDER 2 VIEWS CLINICAL HISTORY: Postoperative examination. FINDINGS: 2 portable views of the left shoulder are obtained. The skeletal structures are osteopenic. A left shoulder arthroplasty is in near anatomic alignment. No acute fracture is seen. Productive degenerative change is noted at the acromioclavicular joint. Skin clips, a surgical drain, soft tissue gas, and edema overlying the left shoulder are expected postoperative findings. The visualized left lung parenchyma appears clear. IMPRESSION: Expected postoperative findings status post left shoulder arthroplasty. No acute fracture is seen. Electronically signed by: Ulises Mcintosh M.D. 03/26/2022 9:07 PM
[2022-03-27] MEDS: DOCUSATE SODIUM 100 MG CAP PO PRN ×2 (10:04→20:57)
[2022-03-27] MEDS: POLYETHYLENE (MIRALAX) 17 GM PACK PO SCH (10:04)
[2022-03-27] MEDS: cefTRIAXone SODIUM 2,000 MG in DEXTROSE 5% 50 ML IV SCH (10:07)
[2022-03-27] MEDS: SENNA 8.6 MG TAB PO SCH (11:33)
[2022-03-27] MEDS: HYDROCODONE/ACETAMOPHEN 5/325MG TAB PO PRN (16:34)
--- NOTE | 2022-03-27 19:34 | Hospitalist Progress Note ---
Date of Service March 27, 2022 Assessment & Plan (1) Dislocation of left shoulder joint: Plan: Anterior dislocation of the left shoulder with fracture of the humeral head. POD #1 s/p reverse TSA by Dr. Jamison DVT prophylaxis - asa 81mg BID. Pain control - d/c oxycodone and morphine - could be contributing to altered MS. Change to norco prn and scheduled tylenol 650mg TID. Check 25-OH vit D level. (2) Acute metabolic encephalopathy: Plan: UTI could be contributing. Pain, pain meds, anesthesia, insomnia, etc - all could be contributing. Rx the UTI. Change pain meds as above. Melatonin 3mg HS. Also add seroquel 12.5mg HS due to significant confusion and some hallucinations. QTc is wnl on most recent EKG. Check TSH, check B12 level. (3) Parkinson disease: Plan: Continue Carbidopa-Levodopa. Continue Exelon patch if available. Medical record suggests h/o cognitive impairment - due to PD? (4) UTI (urinary tract infection): Plan: 2nd to gram negative vida. Cont ceftriaxone. Follow urine culture. (5) Intellectual delay: Plan: Lives in a personal correction Previously lived for 3 years with her POA Dionne who is listed in the chart. Dionne lives in [place]. Need to determine if patient will need rehab at SNF before returning to [facility]. (6) Mild cognitive impairment: Plan: Noted (7) DVT prophylaxis: Plan: asa 81mg BID Plan bowel regimen while getting narcotics for left shoulder pain - miralax + senna. will update pt's POA tomorrow. Admission and Anticipated Discharge Date Admission Date: March 25, 2022 Subjective patient laying in bed during the visit very confused, shifting from topic to topic has not slept in 36+ hours per staff eating fair robbins in place did have bowel movement earlier today main complaint is left shoulder pain Review of Systems Review of Systems: gen - no fevers cv - no chest pain pulm - no dyspnea GI - no abd pain, nausea or emesis Physical Exam Physical Exam: gen - pleasantly confused, NAD mouth - MM dry neck - no JVD heart - RRR, s1 s2 lungs - CTA b/l anteriorly, no wheeze or rales abd - soft NT ND BS+ musculo - left shoulder in sling; extensive ecchymoses over the left shoulder/upper arm; 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; cap refill left hand < 2 seconds lower extremities - no edema, pulses 2+ b/l psych - oriented to person, place but not time Results & Data Results & Data ([facility]) Vital Signs (Past 12 Hours) Vital Signs Temp Pulse Resp BP Pulse Ox O2 Del Method 03/27/22 15:43 36.7 C 87 19 144/82 H 96 Room Air 03/27/22 11:21 36.6 C 88 19 122/77 96 Room Air 03/27/22 07:58 36.7 C 85 19 116/61 93 Room Air Laboratory Results Laboratory Results - last 24 hr 03/27/22 03/27/22 06:54 06:54 WBC 11.00 H RBC 3.44 L Hgb 10.5 L Hct 32.3 L MCV 93.9 MCH 30.5 MCHC 32.5 RDW Std Deviation 46.1 RDW Coeff of Sasha 13.4 Plt Count 213 MPV 9.6 Immature Gran % (Auto) 0.5 Neut % (Auto) 83.3 Lymph % (Auto) 9.7 [place] % (Auto) 6.3 Eos % (Auto) 0.0 Baso % (Auto) 0.2 Neut # (Auto) 9.17 H Lymph # (Auto) 1.07 L [place] # (Auto) 0.69 Eos # (Auto) 0.00 Baso # (Auto) 0.02 Immature Gran # (Auto) 0.05 H Sodium 141 Potassium 3.8 Chloride 109 H Carbon Dioxide 28 Anion Gap 4 BUN 25 H Creatinine 0.82 Est Cr Clr Drug Dosing 58.8 Est GFR ( Amer) 82.9 Est GFR (Non-Af Amer) 71.5 BUN/Creatinine Ratio 30.5 H Glucose 98 Calcium 8.1 L PG Care Time/CCT Total # of Minutes Spent Total Time Spent with Patient: Total time spent is greater than 50% in coordination of care (as documented) at patient's floor/unit and/or counseling patient: Coding Level of Care Code 90493 SUB INP/OBS CARE 2/35MIN Diagnoses Dislocation of left shoulder joint S43.005A Acute metabolic encephalopathy G93.41 Parkinson disease G20 UTI (urinary tract infection) N39.0 Intellectual delay F81.9 Mild cognitive impairment G31.84 DVT prophylaxis Z29.9
[2022-03-27] MEDS: MELATONIN 3 MG TAB PO SCH (20:57)
[2022-03-27] MEDS: ACETAMINOPHEN 325 MG TAB PO SCH (20:57)
[2022-03-27] MEDS: QUEtiapine FUMARATE 25 MG TABLET PO SCH (20:58)
[2022-03-27] MEDS: ASPIRIN 81 MG ECTAB PO SCH (22:20)
[2022-03-28] MEDS: EXELON~ORDER AWAITING ACTION SCH ×3 (03:34→16:41)
[2022-03-28 07:53] LABS: Hematocrit (blood only) 31.5 % (34.1-44.9); Hemoglobin 10.4 g/dl (12.0-16.0); Mean Corpuscular Hemoglobin 30.1 pg (25.0-34.0); Mean Corpuscular Volume 91.3 fL (80.0-100.0); Mean Platelet Volume 9.7 fL (9.4-12.3); Platelet Count 242 K/uL (130-400); RDW Coefficient of Variation 13.5 % (11.5-14.5); RDW Standard Deviation 45.6 fL (36.4-46.3); Red Blood Count 3.45 M/uL (3.93-5.22); White Blood Count 9.88 K/ul (4.8-10.8)
[2022-03-28 08:32] LABS: Calcium 8.1 mg/dl (8.5-10.1); Potassium 3.7 mmol/L (3.5-5.1)
[2022-03-28] MEDS: CARBIDOPA/LEVODOPA 25/100MG TAB PO SCH ×3 (08:37→21:56)
[2022-03-28] MEDS: ASPIRIN 81 MG ECTAB PO SCH ×2 (08:37→21:56)
[2022-03-28] MEDS: HYDROCODONE/ACETAMOPHEN 5/325MG TAB PO PRN (08:37)
[2022-03-28] MEDS: ACETAMINOPHEN 325 MG TAB PO SCH ×3 (08:37→21:55)
[2022-03-28 08:38] LABS: BUN Creatinine Ratio 29.2 (10-20); Creatinine Clr Calc Pharmacy 74.2 ml/min; Est GFR (African American) 102.8 ml/min; Est GFR (Non-African American) 88.7 ml/min
[2022-03-28] MEDS: POLYETHYLENE (MIRALAX) 17 GM PACK PO SCH (08:38)
[2022-03-28 08:41] LABS: Vitamin D, 25 Hydrox 7.1 ng/ml (30-100)
[2022-03-28] MEDS: MULTIVITAMIN TAB PO SCH (08:43)
[2022-03-28] MEDS: SENNA 8.6 MG TAB PO SCH (08:43)
[2022-03-28] MEDS ORDERED: ERGOCALCIFEROL 50,000 UNITS 1250 MCG CAP PO SCH (09:45)
[2022-03-28] MEDS: cefTRIAXone SODIUM 2,000 MG in DEXTROSE 5% 50 ML IV SCH (11:34)
[2022-03-28] MEDS: CYANOCOBALAMIN 1000 MCG/ML VIAL IM SCH (11:35)
--- NOTE | 2022-03-28 14:44 | Orthopedic Progress Note ---
Date of Service March 28, 2022 Assessment & Plan (1) History of reverse total replacement of left shoulder joint: Plan: POD #2 s/p Left fracture reversed Total Shoulder Arthroplasty, Cemented(Left), repair and bone grafting of tuberosities, biceps tenodesis pt/ot sling, ice dvt proph with fabi/scd/asa Dressing change today. DC hemovac. Awaiting SNF placement Admission and Anticipated Discharge Date Admission Date: March 25, 2022 Subjective POD 2 Pt sitting up in bed. Awake, alert. Pain controlled. States her fingers of the right hand are still having a little bit of tingling. Discussed this could be related to positioning of the arm in the sling. Physical Exam Physical Exam: Dressings C/D/I. sling in place. Moving all of her fingers at this time. Cap refill less than 2 seconds. Results & Data ([facility]) Vital Signs (Past 12 Hours) Vital Signs Temp Pulse Resp BP Pulse Ox O2 Del Method 03/28/22 14:40 36.9 C 91 H 18 126/68 98 Room Air 03/28/22 08:04 94 Room Air 03/28/22 07:31 37.2 C 85 18 129/82 91 Room Air Laboratory Results Laboratory Results WBC 9.88 K/ul (4.8-10.8) 03/28/22 07:19 RBC 3.45 M/uL (3.93-5.22) L 03/28/22 07:19 Hgb 10.4 g/dl (12.0-16.0) L 03/28/22 07:19 Hct 31.5 % (34.1-44.9) L 03/28/22 07:19 MCV 91.3 fL (80.0-100.0) 03/28/22 07:19 MCH 30.1 pg (25.0-34.0) 03/28/22 07:19 MCHC 33.0 g/dL (32.0-36.0) 03/28/22 07:19 RDW Std Deviation 45.6 fL (36.4-46.3) 03/28/22 07:19 RDW Coeff of Sasha 13.5 % (11.5-14.5) 03/28/22 07:19 Plt Count 242 K/uL (130-400) 03/28/22 07:19 MPV 9.7 fL (9.4-12.3) 03/28/22 07:19 Immature Gran % (Auto) 0.5 % 03/27/22 06:54 Neut % (Auto) 83.3 % 03/27/22 06:54 Lymph % (Auto) 9.7 % 03/27/22 06:54 [place] % (Auto) 6.3 % 03/27/22 06:54 Eos % (Auto) 0.0 % 03/27/22 06:54 Baso % (Auto) 0.2 % 03/27/22 06:54 Neut # (Auto) 9.17 K/uL (1.4-6.5) H 03/27/22 06:54 Lymph # (Auto) 1.07 K/uL (1.2-3.4) L 03/27/22 06:54 [place] # (Auto) 0.69 K/uL (0.24-0.82) 03/27/22 06:54 Eos # (Auto) 0.00 K/uL (0-0.50) 03/27/22 06:54 Baso # (Auto) 0.02 K/uL (0-0.2) 03/27/22 06:54 Immature Gran # (Auto) 0.05 K/uL (0.00-0.02) H 03/27/22 06:54 PT 10.9 Seconds (9.0-12.0) 03/25/22 06:36 INR 1.0 (0.9-1.1) 03/25/22 06:36 Sodium 140 mmol/L (136-145) 03/28/22 07:19 Potassium 3.7 mmol/L (3.5-5.1) 03/28/22 07:19 Chloride 106 mmol/L (98-107) 03/28/22 07:19 Carbon Dioxide 28 mmol/L (21-32) 03/28/22 07:19 Anion Gap 6 (3-11) 03/28/22 07:19 BUN 19 mg/dl (6-23) 03/28/22 07:19 Creatinine 0.65 mg/dl (0.6-1.2) 03/28/22 07:19 Est Cr Clr Drug Dosing 74.2 ml/min 03/28/22 07:19 Est GFR ( Amer) 102.8 ml/min 03/28/22 07:19 Est GFR (Non-Af Amer) 88.7 ml/min 03/28/22 07:19 BUN/Creatinine Ratio 29.2 (10-20) H 03/28/22 07:19 Glucose 105 mg/dl (70-99(Fasting)) H 03/28/22 07:19 POC Glucose 118 mg/dl (70-99) H 03/26/22 08:08 Calcium 8.1 mg/dl (8.5-10.1) L 03/28/22 07:19 Magnesium 2.0 mg/dl (1.7-2.4) 03/25/22 06:36 Total Bilirubin 0.6 mg/dl (0.2-1.0) 03/25/22 06:36 Direct Bilirubin 0.1 mg/dl (0-0.2) 03/25/22 06:36 AST 15 U/L (13-39) 03/25/22 06:36 ALT 8 U/L (7-52) 03/25/22 06:36 Alkaline Phosphatase 104 U/L (34-104) 03/25/22 06:36 Total Protein 7.1 gm/dl (6.0-8.3) 03/25/22 06:36 Albumin 3.8 gm/dl (3.4-5.0) 03/25/22 06:36 Vitamin B12 259 pg/ml (180-914) 03/28/22 07:19 25-OH Vitamin D Total 7.1 ng/ml (30-100) L 03/28/22 07:19 TSH 1.679 uIu/ml (0.300-4.500) 03/28/22 07:19 Urine Color Dark Yellow 03/26/22 Unknown Urine Appearance Turbid (Clear) A 03/26/22 Unknown Urine pH 5.5 (4.5-7.5) 03/26/22 Unknown Ur Specific [place] 1.032 (1.000-1.030) H 03/26/22 Unknown Urine Protein Trace (Negative) H 03/26/22 Unknown Urine Glucose (UA) Negative (Negative) 03/26/22 Unknown Urine Ketones 1+ (Negative) H 03/26/22 Unknown Urine Blood Negative (Negative) 03/26/22 Unknown Urine Nitrite Positive (Negative) A 03/26/22 Unknown Urine Bilirubin Negative (Negative) 03/26/22 Unknown Urine Urobilinogen Negative (Negative) 03/26/22 Unknown Ur Leukocyte Esterase 1+ (Negative) H 03/26/22 Unknown Urine WBC (Auto) 10-30 /hpf (0-5) H 03/26/22 Unknown Urine RBC (Auto) >30 /hpf (0-4) H 03/26/22 Unknown U Hyaline Cast (Auto) 5-10 /lpf (0-5) H 03/26/22 Unknown U Epithel Cells (Auto) >30 /lpf (0-5) H 03/26/22 Unknown Urine Bacteria (Auto) 4+ (Negative) H 03/26/22 Unknown Urine Crystals Not Reportable 03/26/22 Unknown Other Crystals Talc (None Prsent) 03/26/22 Unknown Nasal Screen MRSA (PCR) Positive (Negative) A 03/25/22 07:03 SARS-CoV-2, RNA, NAAT NEGATIVE (NEGATIVE) 03/25/22 Unknown Impressions Shoulder X-Ray 03/26/22 18:23 LEFT SHOULDER 2 VIEWS CLINICAL HISTORY: Postoperative examination. FINDINGS: 2 portable views of the left shoulder are obtained. The skeletal structures are osteopenic. A left shoulder arthroplasty is in near anatomic alignment. No acute fracture is seen. Productive degenerative change is noted at the acromioclavicular joint. Skin clips, a surgical drain, soft tissue gas, and edema overlying the left shoulder are expected postoperative findings. The visualized left lung parenchyma appears clear. IMPRESSION: Expected postoperative findings status post left shoulder arthroplasty. No acute fracture is seen. Electronically signed by: Ulises Mcintosh M.D. 03/26/2022 9:07 PM
--- NOTE | 2022-03-28 20:39 | Hospitalist Progress Note ---
Date of Service March 28, 2022 Assessment & Plan (1) Dislocation of left shoulder joint: Plan: Anterior dislocation of the left shoulder with fracture of the humeral head 2nd to fall. POD #2 s/p reverse TSA by Dr. Jamison DVT prophylaxis - asa 81mg BID. Pain control - cont norco prn and scheduled tylenol 650mg TID. Replace low vitamin D as below. (2) Acute metabolic encephalopathy: Plan: Improved s/p institution of low-dose seroquel overnight. UTI, pain, pain meds, anesthesia, insomnia, etc - all likely contributed. Rx the UTI. Changed pain meds as above. Melatonin 3mg HS. Cont seroquel 12.5mg HS. QTc wnl on most recent EKG. Replace low vitamin B12. Replace low vitamin D. Of note - her POA "Dionne" reports memory difficulties for several years in addition to her intellectual disabilities. (3) Parkinson disease: Plan: Continue Carbidopa-Levodopa. Continue Exelon patch if available. Medical record suggests h/o cognitive impairment - due to PD? (4) UTI (urinary tract infection): Plan: 2nd to pansens e.coli. stop rocephin - today was day #3 of such change to keflex 500mg BID tomorrow am and Rx for 4 more days (5) Intellectual delay: Plan: Lives in a personal long-term Previously lived for 3 years with her POA Dionne who is listed in the chart. Dionne lives in [place]. Dionne updated by phone this evening. (6) Mild cognitive impairment: Plan: Noted (7) Vitamin D deficiency: Plan: severe ergocalciferol 47216 units qweekly x 8 weeks with repeat level at conclusion of course level - 7 (8) Vitamin B12 deficiency: Plan: level = 259 replace with IM B12 1000mcg daily x 5 doses, then PO supplementation thereafter (9) Acute blood loss anemia: Plan: presenting Hb 13 10.5 post-op, and 10.4 today mild - no Rx needed (10) DVT prophylaxis: Plan: asa 81mg BID Plan bowel regimen while getting narcotics for left shoulder pain - miralax + senna. POA updated by phone cont PT/OT previously living in [facility] pre-hospital; will need SNF placement due to limitations of [facility] social work assisting Admission and Anticipated Discharge Date Admission Date: March 25, 2022 Subjective patient sitting in chair comfortably by the window looks good today staff report that she slept well confusion is better today eating well drinking better pain in left shoulder is improved rosendo d/c this am by staff updated pt's POA - "Dionne" - by phone this evening Review of Systems Review of Systems: cv - no chest pain pulm - no dyspnea GI - no pain Physical Exam Physical Exam: gen - looks good today; NAD; sitting in chair; less confused than previous mouth - MMM neck - no JVD heart - RRR, s1 s2, no murmur lungs - CTA b/l abd - soft NT ND BS+ musculo - left shoulder in sling;left hand neon sign servicer 5/5; cap refill left hand < 2 seconds; left knee - nontender with passive ROM of L knee, no deformity of left leg lower extremities - no edema, pulses 2+ b/l skin - abrasions above left knee Results & Data Results & Data ([facility]) Vital Signs (Past 12 Hours) Vital Signs Temp Pulse Resp BP Pulse Ox O2 Del Method 03/28/22 20:08 36.7 C 80 18 124/61 96 Room Air 03/28/22 14:40 36.9 C 91 H 18 126/68 98 Room Air Laboratory Results Laboratory Results - last 24 hr 03/28/22 03/28/22 03/28/22 07:19 07:19 07:19 WBC 9.88 RBC 3.45 L Hgb 10.4 L Hct 31.5 L MCV 91.3 MCH 30.1 MCHC 33.0 RDW Std Deviation 45.6 RDW Coeff of Sasha 13.5 Plt Count 242 MPV 9.7 Sodium 140 Potassium 3.7 Chloride 106 Carbon Dioxide 28 Anion Gap 6 BUN 19 Creatinine 0.65 Est Cr Clr Drug Dosing 74.2 Est GFR ( Amer) 102.8 Est GFR (Non-Af Amer) 88.7 BUN/Creatinine Ratio 29.2 H Glucose 105 H Calcium 8.1 L Vitamin B12 259 25-OH Vitamin D Total 7.1 L TSH 03/28/22 07:19 WBC RBC Hgb Hct MCV MCH MCHC RDW Std Deviation RDW Coeff of Sasha Plt Count MPV Sodium Potassium Chloride Carbon Dioxide Anion Gap BUN Creatinine Est Cr Clr Drug Dosing Est GFR ( Amer) Est GFR (Non-Af Amer) BUN/Creatinine Ratio Glucose Calcium Vitamin B12 25-OH Vitamin D Total TSH 1.679 PG Care Time/CCT Total # of Minutes Spent Total Time Spent with Patient: Total time spent is greater than 50% in coordination of care (as documented) at patient's floor/unit and/or counseling patient: Coding Level of Care Code 71110 SUB INP/OBS CARE 2/35MIN Diagnoses Dislocation of left shoulder joint S43.005A Acute metabolic encephalopathy G93.41 Parkinson disease G20 UTI (urinary tract infection) N39.0 Intellectual delay F81.9 Mild cognitive impairment G31.84 Vitamin D deficiency E55.9 Vitamin B12 deficiency E53.8 Acute blood loss anemia D62 DVT prophylaxis Z29.9
[2022-03-28] MEDS: MELATONIN 3 MG TAB PO SCH (21:54)
[2022-03-28] MEDS: QUEtiapine FUMARATE 25 MG TABLET PO SCH (23:33)
[2022-03-29] MEDS: EXELON~ORDER AWAITING ACTION SCH ×2 (00:01→09:46)
[2022-03-29] MEDS ORDERED: cephALEXin 500 MG CAP PO SCH (09:00)
[2022-03-29] MEDS: CARBIDOPA/LEVODOPA 25/100MG TAB PO SCH ×2 (09:49→14:12)
[2022-03-29] MEDS: ACETAMINOPHEN 325 MG TAB PO SCH ×2 (09:49→14:11)
[2022-03-29] MEDS: SENNA 8.6 MG TAB PO SCH (09:50)
[2022-03-29] MEDS: CYANOCOBALAMIN 1000 MCG/ML VIAL IM SCH (09:50)
[2022-03-29] MEDS: ASPIRIN 81 MG ECTAB PO SCH (09:50)
[2022-03-29] MEDS: MULTIVITAMIN TAB PO SCH (09:50)
[2022-03-29] MEDS: POLYETHYLENE (MIRALAX) 17 GM PACK PO SCH ×2 (09:50→09:59)
--- NOTE | 2022-03-29 10:33 | Orthopedic Progress Note ---
Date of Service March 29, 2022 Assessment & Plan (1) History of reverse total replacement of left shoulder joint: Plan: Postop day #3 status post left reverse total shoulder for fracture. -No active motion of the left shoulder, no weightbearing with the left arm. -Follow-up with Dr. Jamison in orthopedics clinic 10 to 14 days after surgery. Please call [facility] at [phone] to make an appointment. -Orthopedics will sign off at this point. Call with questions. Admission and Anticipated Discharge Date Admission Date: March 25, 2022 Subjective Patient sitting in her chair and appears comfortable. She does endorse pain in her left shoulder. She is disoriented to place and time, and she does not seem to realize that she had surgery on her shoulder, although she does remember that she had her dressing changed this morning. Physical Exam Physical Exam: She is disoriented to place and time. She had difficulty understanding and following simple commands. However motor and sensory function is intact in the median, ulnar, and radial nerve distributions. Dressing is clean, dry, intact. Left arm is in a sling. Results & Data ([facility]) Vital Signs (Past 12 Hours) Vital Signs Temp Pulse Resp BP Pulse Ox O2 Del Method 03/29/22 08:22 37.0 C 94 H 16 124/83 96 Room Air
--- NOTE | 2022-03-29 12:28 | XRay Report ---
XR knee LT 1 or 2V routine HISTORY: 72 years-old Female recent fall, bruise L patella, eval Fx acute left knee pain status post fall COMPARISON: None TECHNIQUE: 2 views of the left knee FINDINGS: Mild medial and lateral with moderate patellofemoral compartment osteoarthritis. No acute fracture, d islocation or large joint effusion. Subcentimeter corticated ossification projects over Hoffa's fat p ad which appears chronic. IMPRESSION: 1. No acute fracture or dislocation. 2. Tricompartmental osteoarthritis, moderate within the patellofemoral joint. ACT 112: Negative or not required by law. The above report was generated using voice recognition software. It may contain grammatical, syntax o r spelling errors. Electronically signed by: Jose L Mancia M.D. 03/29/2022 12:27 PM
--- NOTE | 2022-03-29 14:59 | Discharge Summary ---
Date of Service March 29, 2022 Admission HPI Per Admitting Provider Kaleigh Yanes is a 72yo female with history of Parkinson's Disease presenting from [facility] with left anterior shoulder dislocation with age-indeterminant humeral fracture following a ground level fall. Patient is a poor historian and is unable to provide details of her the events preceding hospital arrival. Per discussion with ER staff at [facility], reduction was attempted x 3 and was unsuccessful. No Orthopedics on staff there. Patient requested transfer to [facility]. CT of the head was performed which was negative At [facility] she received Propofol 200mg and Versed 2mg IV for reduction Discharge Exam gen - looks good today; NAD; sitting in chair; less confused than previous mouth - MMM neck - no JVD heart - RRR, s1 s2, no murmur lungs - CTA b/l abd - soft NT ND BS+ musculo - left shoulder in sling;left hand sloop captain 5/5; cap refill left hand < 2 seconds; left knee - nontender with passive ROM of L knee, no deformity of left leg lower extremities - no edema, pulses 2+ b/l skin - abrasions above left knee Discharge Data Allergies Allergy/AdvReac Type Severity Reaction Status Date / Time No Known Drug Allergies Allergy Mild Verified 03/25/22 06:40 Consultations 03/25/22 06:17 Consult Orthopedic Surgery Routine Procedures Performed Operation Date: 03/26/22 07:50 Actual Procedures p Left Reverse Total Shoulder Arthroplasty, Cemented(Left) - Lv Jamison MD Ordered Studies 03/25/22 10:17 CT shoulder LT wo con Routine 03/26/22 16:01 US - OR guided needle placemen Routine 03/26/22 17:06 US - OR guided needle placemen Routine Hospital Course (1) Dislocation of left shoulder joint: Anterior dislocation of the left shoulder with fracture of the humeral head 2nd to fall. POD #2 s/p reverse TSA by Dr. Jamison DVT prophylaxis - asa 81mg BID. Pain control - cont norco prn and scheduled tylenol 650mg TID. Replace low vitamin D as below. (2) Acute metabolic encephalopathy: Improved s/p institution of low-dose seroquel overnight. UTI, pain, pain meds, anesthesia, insomnia, etc - all likely contributed. Rx the UTI. Changed pain meds as above. Melatonin 3mg HS. Cont seroquel 12.5mg HS. QTc wnl on most recent EKG. Replace low vitamin B12. Replace low vitamin D. Of note - her POA "Dionne" reports memory difficulties for several years in addition to her intellectual disabilities. (3) Parkinson disease: Continue Carbidopa-Levodopa. Continue Exelon patch if available. Medical record suggests h/o cognitive impairment - due to PD? (4) UTI (urinary tract infection): 2nd to pansens e.coli. stop rocephin - today was day #3 of such change to keflex 500mg BID tomorrow am and Rx for 4 more days (5) Intellectual delay: Lives in a personal assisted Previously lived for 3 years with her POA Dionne who is listed in the chart. Dionne lives in [place]. Dionne updated by phone this evening. (6) Mild cognitive impairment: Noted (7) Vitamin D deficiency: severe ergocalciferol 91352 units qweekly x 8 weeks with repeat level at conclusion of course level - 7 (8) Vitamin B12 deficiency: level = 259 replace with IM B12 1000mcg daily x 5 doses, then PO supplementation thereafter (9) Acute blood loss anemia: presenting Hb 13 10.5 post-op, and 10.4 today mild - no Rx needed (10) DVT prophylaxis: asa 81mg BID Plan bowel regimen while getting narcotics for left shoulder pain - miralax + senna. POA updated by phone cont PT/OT previously living in [facility] pre-hospital; will need SNF placement due to limitations of L shoulder social work assisting Discharge Plan Discharge Items Patient Disposition: Transfer [facility]irement Fac Reason For Visit: LEFT SHOULDER DISLOCATION, FRACTURE Discharge Diagnosis: 1. Fracture/dislocation of left shoulder (humerus) due to fall - s/p left total reverse shoulder replacement - Lv Jamison MD 2. Left biceps rupture - s/p biceps tenodesis - Lv Jamison MD 3. E.coli UTI 4. Hospital delirium - improved 5. Baseline intellectual disability 6. Cognitive impairment vs dementia 7. vitamin D deficiency 8. vitamin B12 deficiency 9. acute blood loss anemia - discharge hemoglobin 10.5 10. left knee abrasion due to fall - x-rays without fracture. Activity: Per Instructions section Weightbearing: Left non-weightbearing Weightbearing Comment: NON-WEIGHTBEARING OF LEFT ARM; Continue use of sling Non-emergency contact: Primary Care Provider and Surgeon Call non-emergency contact if: you have any medication questions, your pain is worsening, you have a fever, your temperature is above 101.5, your wound has increased redness and your wound has increased drainage Follow-up/Referrals: Lv Jamison MD [Surgeon] - (Follow up with Dr Jamison in 2 weeks from the day of your surgery for your first post operative visit. Surgery date was 03/26/22. ) Margie Lamb DO [Primary Care Provider] - Diet: Regular Diet Texture: Easy to Chew Addtl Attending Provider Instructions: Mrs Yanes was hospitalized after suffering a fall and dislocating/fracturing the left shoulder. She also had biceps tendon rupture from the injury. She bumped her left knee and has an abrasion near the knee, but there are no fractures on x-rays of the L knee. She underwent repair of her L shoulder fracture and biceps tendon rupture by Dr Jamison, [facility] Orthopedics. Hospital stay was complicated by UTI and mild hospital delirium/confusion. Latter improved with seroquel. Recommendations - 1. NON-WEIGHTBEARING / NO USE OF LEFT ARM. 2. Sling to left arm. 3. CBC, BMP in 1 week for stability. 4. Repeat vitamin D level at conclusion of vitamin D course to ensure normalization. 5. follow-up with Dr Jamison as noted in these instructions. 6. aspirin 81mg twice daily x 6 weeks for DVT prophylaxis. Addtl [employer] Provider Instructions: ACTIVITY RECOMMENDATIONS: SELF CARE INSTRUCTIONS AFTER TOTAL SHOULDER ARTHROPLASTY REVERSE A. You may do daily exercises as taught in physical therapy while in hospital. No lifting with the operative arm. B. You are to wear your sling/immobilizer at all times EXCEPT when performing your daily exercises and for hygiene purposes. C. You may perform dry, daily dressing changes. Please keep your incision covered. You may shower 48 hours after surgery. Do not apply soap or any ointment/lotions directly over incision. Do not soak incision in bath tub/swimming pool. D. You may use ice as needed to operative shoulder. SPECIAL CARE INSTRUCTIONS: VERY IMPORTANT TO READ AND REVIEW A. There are a few signs you need to watch for after you are home. Call [facility] at [phone] if you experience any of the followin. Increased severe shoulder pain. Some pain is expected especially when you exercise. 2. Increased swelling in you shoulder or arm; pain or swelling in either upper extremity. 3. Any fluid drainage from the incision. 4. Shortness of breath or chest pain. B. Please call [facility] at [phone] if you have any questions or concerns about your operation or recovery. C. Call your physician if: 1. Temperature is greater than 101 degrees (F). 2. Pain is not relieved by prescribed pain medications. 3. Increase drainage or redness from incision. 4. Unanswered questions or concerns. FOLLOW UP VISIT: Please call [facility] at [phone] to schedule a follow up appointment with Dr. Jamison or his PA in 12-14 days from your surgery date. Pending Studies at Discharge: No Stand-Alone Forms: My [facility] Skilled Items Patient informed of condition?: Yes DNR: No Discharge Level of Care: Skilled Communicable Disease: No Discharge Prognosis: Stable Lines: None Urinary Catheter: No Medications and DC Order Prescriptions: New quetiapine 25 mg Tablet 12.5 mg PO HS Qty: 30 0RF sennosides [Senokot] 8.6 mg Tablet 8.6 mg PO QAM Qty: 30 0RF acetaminophen 325 mg Tablet 650 mg PO TID 14 Days Qty: 84 0RF polyethylene glycol 3350 [Miralax] 17 gram Powder In Packet 17 g PO DAILY Qty: 1 0RF hydrocodone-acetaminophen 5-325 mg Tablet 1 tab PO Q6H PRN (Reason: pain) Qty: 20 0RF melatonin 3 mg Tablet 3 mg PO HS Qty: 30 0RF aspirin 81 mg Tablet,Delayed Release (Dr/Ec) 81 mg PO BID 42 Days Qty: 84 0RF cephalexin 500 mg Capsule 500 mg PO BID 4 Days Qty: 8 0RF ergocalciferol (vitamin D2) 1,250 mcg (50,000 unit) Capsule 50,000 unit PO UD 49 Days Qty: 7 0RF Rx Instructions: 50,000 units once weekly x 7 additional weeks; first dose on 04/04/22. multivitamin with folic acid [Daily-Alen (with folic acid)] 400 mcg Tablet 1 tab PO QAM Qty: 30 0RF cyanocobalamin (vitamin B-12) 1,000 mcg capsule 1,000 mcg PO DAILY Qty: 90 3RF famotidine [Pepcid] 20 mg tablet 20 mg PO BID 42 Days Qty: 84 0RF Continued carbidopa-levodopa 25-100 mg tablet 1 tab PO TID rivastigmine [Exelon Patch] 4.6 mg/24 hour patch 24 hour 1 patch transdermal DAILY Discharge Orders: Discharge Order (Routine); Ordered 03/29/22 Ordered By: Michael Dugan Admission Data Admit Date/Time: 03/25/22 06:17 Attending Provider: Michael Dugan Admit Provider: Radha Chappell Primary Care Provider: Margie Lamb Other Providers: Samuel Reyez Other Interventions: Discharge Summary Assessment (RN) Last Done: 03/29/22 14:09 Coding Diagnoses Dislocation of left shoulder joint S43.005A Acute metabolic encephalopathy G93.41 Parkinson disease G20 UTI (urinary tract infection) N39.0 Intellectual delay F81.9 Mild cognitive impairment G31.84 Vitamin D deficiency E55.9 Vitamin B12 deficiency E53.8 Acute blood loss anemia D62 DVT prophylaxis Z29.9
== END 2022-03-29 15:26 | disposition home or self-care (01) | DRG 483 ==
LOC: SUATTDRO 05:44 → 3W 05:44 → SUATTDRO 06:17